=== PATIENT | female | born 1935 | race Caucasian/White ===

== ENCOUNTER 2018-07-14 11:11 | Inpatient (IN) | payer MEDICARE, OTHER ==
[~2018-07-14] VITALS: Ht 162.6 cm; Wt 87.1 kg
[2018-07-14] MEDS ORDERED: IV NORMAL SALINE 1,000ML 1,000 ML IV ONE (11:30)
[2018-07-14 11:52] LABS: BASO % 1 % (0-3); EOS % 0 % (0-3); HEMATOCRIT 43.6 % (36.0-47.0); HEMOGLOBIN 14.2 g/dL (12.0-15.5); LYMPH % 23 % (24-48); MEAN CORPUSCULAR HEMOGLOBIN 28 pg (25-35); MEAN CORPUSCULAR HGB CONC 33 g/dL (31-37); MEAN CORPUSCULAR VOLUME 86 fL (79-100); MONO # 0.2 x10^3/uL (0.0-1.1); MONO % 4 % (0-9); NEUT # 3.3 x10^3uL (1.8-7.7); NEUT % 72 % (31-73); PLATELET COUNT 166 x10^3/uL (140-400); RED BLOOD COUNT 5.06 x10^6/uL (3.50-5.40); RED CELL DISTRIBUTION WIDTH 13.8 % (11.5-14.5); WHITE BLOOD COUNT 4.6 x10^3/uL (4.0-11.0)
--- NOTE | 2018-07-14 11:58 | PHYS DOC ---
Adult General Chief Complaint Chief Complaint: DIZZY/LIGHT HEADED HPI HPI 83-year-old female presents with dizziness. Patient states that she had sudden onset dizziness when she sat up last night. He describes the dizziness as a room spinning sensation. She had a cold onto the newsome to walk in the hallway. She was able to sleep overnight. Today when the patient got up she had the same and station. It comes on she moves her head too quickly. Patient did have one episode of nausea, vomiting, and diarrhea. She has had no further episodes. She has never had this before. She is generally very active, swimming every day. She has no history of vertigo, cardiac problems, or stroke. The patient denies fever or chills. She has had no other symptoms of illness prior to this. Review of Systems Review of Systems Constitutional: Denies fever or chills [] Eyes: Denies change in visual acuity, redness, or eye pain [] HENT: Denies nasal congestion or sore throat [] Respiratory: Denies cough or shortness of breath [] Cardiovascular: No additional information not addressed in HPI [] GI: Denies abdominal pain, nausea, vomiting, bloody stools or diarrhea [] : Denies dysuria or hematuria [] Musculoskeletal: Denies back pain or joint pain [] Integument: Denies rash or skin lesions [] Neurologic: Denies headache, focal weakness or sensory changes. Dizziness [] Endocrine: Denies polyuria or polydipsia [] All other systems were reviewed and found to be within normal limits, except as documented in this note. Current Medications Current Medications Current Medications Medications (Trade) Dose Ordered Sig/[facility] Start Time Stop Time Status Last Admin Dose Admin Ondansetron HCl (Zofran) 4 mg 1X ONCE 07/14/18 11:30 07/14/18 11:31 UNV Sodium Chloride 1,000 ml @ 1,000 mls/hr 1X ONCE 07/14/18 11:30 07/14/18 12:29 UNV Physical Exam Physical Exam Constitutional: Well developed, obese, well nourished, no acute distress, non- toxic appearance. [] HENT: Normocephalic, atraumatic, bilateral external ears normal, oropharynx moist, no oral exudates, nose normal. Tympanic membranes normal[] Eyes: PERRLA, EOMI, conjunctiva normal, no discharge. [] Neck: Normal range of motion, no tenderness, supple, no stridor. [] Cardiovascular:Heart rate regular rhythm, no murmur [] Lungs & Thorax: Bilateral breath sounds clear to auscultation [] Abdomen: Bowel sounds normal, soft, no tenderness, no masses, no pulsatile masses. [] Skin: Warm, dry, no erythema, no rash. [] Back: No tenderness, no CVA tenderness. [] Extremities: No tenderness, no cyanosis, no clubbing, ROM intact, no edema. [] Neurologic: Alert and oriented X 3, normal motor function, normal sensory function, no focal deficits noted. [] Psychologic: Affect normal, judgement normal, mood normal. [] EKG EKG Sinus rhythm, rate 53, normal axis, no ST elevations or depressions.[] Radiology/Procedures Radiology/Procedures [] Impressions: PQRS Compliance statement: One or more of the following individualized dose reduction techniques were utilized for this examination: 1. Automated exposure control. 2. Adjustment of the mA and/or kV according to patient size. 3. Use of iterative reconstruction technique. Indication:DIZZINESS TIMES 2 DAYS TECHNIQUE: CT head without IV contrast COMPARISON:11/12/2011 FINDINGS: No pathologic extra-axial or intra-axial fluid collection. Mild diffuse cerebral atrophy with ex vacuo dilation of the ventricles. Confluent low-attenuation is seen in the periventricular and deep white matter. No acute intracranial bleed. No focal loss of hurley-white differentiation. Orbits are within normal limits. No suspicious calvarial lesion. Visualized paranasal sinuses and mastoid air cells are clear. IMPRESSION: 1. No acute intracranial bleed. 2. Advanced white matter changes likely secondary to chronic microvascular ischemic disease. If concern for acute ischemic stroke is high, please consider MRI brain. Electronically signed by: Ryan Flor DO (07/14/2018 11:53 AM) [facility] DICTATED AND SIGNED BY: RYAN FLOR DO DATE: 07/14/18 2421 CC: KRYSTAL DAUGHERTY DO; HALLEY PATRICK DO Course & Med Decision Making Course & Med Decision Making Pertinent Labs and Imaging studies reviewed. (See chart for details) Patient's EKG is unremarkable. Her labs are unremarkable. Her urine is pending. Her head CT is unremarkable. We have given normal saline. We'll attempt to do orthostatic pressures, she gets very dizzy when she stands up. The have given her meclizine and we'll retest her to see if this helps. It did not I will admit her to the hospital. The patient's blood pressure is also quite elevated at 195/95. I will give her clonidine in the ED. The clonidine helped with the patient's blood pressure. The meclizine was not helping with her dizziness. I talked to the hospitalist, Dr. Parmar and he has accepted the patient for admission. The patient is in agreement with admission. [] Dragon Disclaimer Dragon Disclaimer This electronic medical record was generated, in whole or in part, using a voice recognition dictation system. Departure Departure: Impression: Primary Impression: Dizziness Disposition: ADMITTED INPATIENT Admitting Physician: Vin Parmar Condition: STABLE Referrals: HALLEY PATRICK DO (PCP) KRYSTAL DAUGHERTY DO Jul 14, 2018 11:58
[2018-07-14 12:07] LABS: ALBUMIN 3.5 g/dL (3.4-5.0); ALBUMIN/GLOBULIN RATIO 1.2 (1.0-1.7); CALCIUM 9.1 mg/dL (8.5-10.1); CREATININE 0.8 mg/dL (0.6-1.0); GFR 68.8; POTASSIUM 4.3 mmol/L (3.5-5.1); TOTAL BILIRUBIN 0.5 mg/dL (0.2-1.0); TOTAL PROTEIN 6.5 g/dL (6.4-8.2)
[2018-07-14] MEDS ORDERED: ONDANSETRON PF 4 MG/2 ML VIAL. IV ONE (12:45)
[2018-07-14] MEDS ORDERED: MECLIZINE 12.5 MG TABLET. PO PRN (13:30)
[2018-07-14] MEDS ORDERED: cloNIDine HCL 0.1 MG TABLET PO ONE (14:15)
[2018-07-14 15:34] VITALS: BP 119/73
--- NOTE | 2018-07-14 17:48 | HP ---
ADMIT DATE: 07/14/2018 HISTORY OF PRESENT ILLNESS: The patient is an 83-year-old female patient who came to the Emergency Room complaining of dizziness that started 2 nights ago. First night, she woke up from her bed to go to the bathroom and felt that the things spinning around. She basically used the furniture on newsome, and was able to go back to her bed and sleep. When she got up, she had the same sensation. Yesterday she did well; however, early this morning around 3:30, she went to the bathroom and had the same feeling and she woke up again this morning and she basically has the same another episode during which she has vomited and has one episode of diarrhea, but denied any chest pain and she has never had this before and she is generally very active, swimming every day. She was investigated in the Emergency Room. Her lab works were unremarkable and a CT scan of the head basically showed no pathologic, extraaxial, or intraaxial fluid collection. Mild diffuse cerebral atrophy with ex vacuo dilatation of the ventricles, confluent low attenuation is seen in the periventricular and deep white matter. No acute intracranial bleed, no focal loss of hurley-white differentiation. Orbits are within normal limits. No suspicious calvarial lesion visualized. Paranasal sinuses and mastoid air cells are clear. The patient was admitted with acute labyrinthitis versus benign positional vertigo. PAST MEDICAL HISTORY: Significant for hypertension, hyperlipidemia. PAST SURGICAL HISTORY: Significant for total abdominal hysterectomy, bilateral salpingo-oophorectomy, but has bilateral cataract extraction, tonsillectomy, appendectomy. She had had also colonoscopy and broken right foot treated conservatively. ALLERGIES: She has no known drug allergies. MEDICATIONS: She is on Altace 10 mg once a day. FAMILY HISTORY: Her father at the age of 67 because of myocardial infarction. Mother at the age of 75 because of myocardial infarction. She has no brothers or sisters. SOCIAL HISTORY: She is , has no children. She does not smoke. Drinks alcohol occasionally and it has to be a [place] beer. 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 REVIEW OF SYSTEMS: The patient denied any blurring of vision, has had bilateral cataract extraction, but denied any glaucoma or macular degeneration. Denied any earache, tinnitus or sensorineural deafness. Denied any nosebleeds, stuffy nose or postnasal drip. Denied any sore throat, sore tongue, toothache, hoarseness of voice or difficulty swallowing. Did have 1 episode of nausea and vomiting this morning; has had one episode of diarrhea, but denied any hematemesis, melena or hematochezia. Denied any dysuria, frequency or hematuria. Denied any chest pain, shortness of breath, cough, phlegm or hemoptysis. Did complain obviously of dizziness and spinning things around. Denied any palpitation. Denied any chills, rigors or fever. PHYSICAL EXAMINATION: GENERAL: On arrival to the Emergency Room, she looked well and was clearly in no apparent respiratory distress. No pallor, jaundice, cyanosis, or thyromegaly. No jugular venous distension. No limb edema. VITAL SIGNS: Her heart rate was 54, blood pressure 140/75, temperature was 98.3, respiratory rate was 16, and oxygen saturation was 98%. HEAD, EYES, EARS, NOSE, AND THROAT: Showed normocephalic, atraumatic. NECK: Supple. HEART: Showed normal first and second heart sounds. No gallop, rub or murmur. CHEST: Clear to auscultation. No crepitation or rhonchi. ABDOMEN: Distended, soft, nontender. NEUROLOGIC: She was awake, alert, responding appropriately. She is okay when she is lying flat in bed, but the moment she starts moving she starts having this feeling that things are spinning around; however, I could not elicit any nystagmus. All her cranial nerves are intact. She moves extremities without difficulty. She ambulates without assistance or assistive devices. LABORATORY DATA: Showed a serum sodium 143, potassium 4.3, chloride 107, bicarbonate 27, anion gap of 9, BUN 16, creatinine 0.8, estimated GFR was 69 mL per minute, glucose 170, calcium was 9.1. Total bilirubin, AST, ALT, alkaline phosphatase were normal. Total protein was 6.5, albumin was 3.5. Her white cell count was 4600, hemoglobin 14.2, hematocrit 44, MCV 86, and platelet count of 166,000. Her CT scan showed that no pathologic extraaxial or intraaxial fluid collection. She has mild cerebral atrophy with ex vacuo dilatation of the ventricles, confluent low attenuation seen in the periventricular and deep white matter, no acute intracranial bleed. No focal loss of hurley-white differentiation. Orbits are within normal limits. No suspicious calvarial lesion visualized. Paranasal sinuses and mastoid air cells are clear. PLAN: My plan is to arrange for carotid Doppler ultrasound. Consult Dr. Valladares. Check her lipid profile tomorrow. DEVANG NEELY MD DR: AMISHA/vianney JOB#: [id number] / [id number]
[2018-07-14] MEDS ORDERED: METOCLOPRAMIDE HCL 10 MG/2 ML VIAL. IV PRN (18:15)
[2018-07-14] MEDS ORDERED: RAMI10CA34 PO (18:15)
[2018-07-14] MEDS ORDERED: ONDANSETRON PF 4 MG/2 ML VIAL. IV PRN (18:15)
[2018-07-14] MEDS ORDERED: diphenhydrAMINE HCL 25 MG CAPSULE PO PRN (18:15)
[2018-07-14 18:35] VITALS: BP 108/66
[2018-07-14 20:30] VITALS: BP 97/62
[2018-07-14 23:19] VITALS: BP 111/66
[2018-07-15 06:04] VITALS: BP 144/82
[2018-07-15 08:12] LABS: ALBUMIN 3.5 g/dL (3.4-5.0); ALBUMIN/GLOBULIN RATIO 1.2 (1.0-1.7); CREATININE 0.8 mg/dL (0.6-1.0); GFR 68.8; MAGNESIUM 2.2 mg/dL (1.8-2.4); POTASSIUM 4.1 mmol/L (3.5-5.1); TOTAL BILIRUBIN 0.5 mg/dL (0.2-1.0); TOTAL PROTEIN 6.4 g/dL (6.4-8.2)
[2018-07-15 08:18] LABS: BASO # 0.1 x10^3/uL (0.0-0.2); BASO % 1 % (0-3); EOS # 0.2 x10^3/uL (0.0-0.7); EOS % 4 % (0-3); HEMATOCRIT 45.7 % (36.0-47.0); HEMOGLOBIN 14.8 g/dL (12.0-15.5); LYMPH # 2.3 x10^3/uL (1.0-4.8); LYMPH % 41 % (24-48); MEAN CORPUSCULAR HEMOGLOBIN 28 pg (25-35); MEAN CORPUSCULAR HGB CONC 32 g/dL (31-37); MEAN CORPUSCULAR VOLUME 87 fL (79-100); MONO # 0.4 x10^3/uL (0.0-1.1); MONO % 8 % (0-9); NEUT # 2.6 x10^3uL (1.8-7.7); NEUT % 47 % (31-73); PLATELET COUNT 185 x10^3/uL (140-400); RED BLOOD COUNT 5.29 x10^6/uL (3.50-5.40); RED CELL DISTRIBUTION WIDTH 14.3 % (11.5-14.5); WHITE BLOOD COUNT 5.7 x10^3/uL (4.0-11.0)
[2018-07-15 08:36] LABS: BACTERIA,URINE FEW /HPF (0-FEW); BILIRUBIN,URINE NEG (NEG); CLARITY,URINE HAZY; COLOR,URINE AMBER; GLUCOSE,URINE NEG (NEG); NITRITE,URINE NEG (NEG); RBC,URINE RARE /HPF (0-2); UROBILINOGEN,URINE 0.2 mg/dL (0.2 mg/dL)
[2018-07-15 08:37] LABS: HYALINE CASTS, URINE OCC /HPF; SQUAMOUS EPITHELIAL CELL,UR MOD /LPF
--- NOTE | 2018-07-15 09:05 | RAD ---
DOPPLER CAROTID BILAT Clinical Indication: Vertigo.. Procedure: Pulsed wave and color-flow duplex imaging was utilized to evaluate the extracranial carotid arteries. Comparison: None. Findings: RIGHT SIDE: Mild atherosclerotic plaque on hurley-scale images. Distal CCA peak systolic velocity 41 cm/sec. ICA peak systolic velocity 58 cm/sec. The right ICA/CCA ratio is 1.4. Flow in the vertebral artery and right ECA is directed antegrade. LEFT SIDE: Mild atherosclerotic plaque on hurley-scale images. Distal CCA peak systolic velocity 41 cm/sec. ICA peak systolic velocity 55 cm/sec. The left ICA/CCA ratio is 1.3. Flow within the left vertebral artery and left ECA is directed antegrade. Carotid legend: CCA = common carotid artery ICA = internal carotid artery ECA = external carotid artery IMPRESSION: No hemodynamically significant stenosis. Electronically signed by: Ryan Flor DO (07/15/2018 9:02 AM) [facility]
[2018-07-15 10:20] VITALS: BP 138/84
[2018-07-15] MEDS ORDERED: ASPIRIN 81 MG TAB.CHEW PO SCH (11:00)
[2018-07-15] MEDS ORDERED: MECL12.52 PO (14:29)
--- NOTE | 2018-07-15 18:53 | CONS ---
DATE OF CONSULTATION: NEUROLOGY CONSULTATION REASON FOR CONSULTATION: Severe dizziness. HISTORY OF PRESENT ILLNESS: This is an 83-year-old right-handed female who was admitted through Emergency Room yesterday after she presented with 2-day history of recurrent dizzy spell described as "spinning," aggravated by changing her body positions from sitting to standing. The patient also complains of nausea and she vomited one time. She denies headaches, visual disturbances. No chest pain, shortness of breath, palpitation, dysarthria, dysphagia, weakness, or paresthesia. Initial nonenhanced head CT scan revealed evidence of generalized atrophy with ventricular hypertrophy and chronic small vessel ischemic changes. She denies any recent head injuries or fall. PAST MEDICAL HISTORY: Significant for hypertension and hyperlipidemia. PAST SURGICAL HISTORY: Significant for hysterectomy, appendectomy, tonsillectomy, and cataract extraction. SOCIAL HISTORY: The patient is . She has no children. She denies smoking, alcohol drinking, or illicit drug use. FAMILY HISTORY: Father at the age of 67 from coronary artery disease and mother at the age of 75 because of coronary artery disease and heart attack. CURRENT MEDICATIONS: Altace 10 mg daily. ALLERGIES: No known drug allergies. REVIEW OF SYSTEMS: A 10-point review of system was performed and consistent with dizziness as mentioned above in history of present illness. PHYSICAL EXAMINATION: GENERAL: A well-developed, well-nourished female, not in acute distress. VITAL SIGNS: She weighs 192 pounds and height is 64 inches. Blood pressure 119/73, respiratory rate 20, pulse is 59, temperature 97.1, oxygen saturation 94% on room air. HEENT: Normocephalic, atraumatic, otherwise unremarkable. NECK: Supple. Negative for carotid bruit, lymphadenopathy, or thyromegaly. LUNGS: Clear to A and P. CARDIOVASCULAR: Regular rhythm, normal S1, S2. There is no S3, S4, or murmur. ABDOMEN: Soft. Bowel sounds positive. EXTREMITIES: Negative for cyanosis, clubbing, or pitting edema. NEUROLOGICAL: Mental status: The patient is alert and oriented x 2. Speech is fluent. There is no language dysfunction. Memory patient recalled 2/3 immediately and 1/3 after 1 and 3 minutes. Judgment and abstract thinking are normal. The patient denies hallucination or delusion. CRANIAL NERVES: Visual angulo are full. The pupils are reactive to light and accommodation. The extraocular movements are intact. There is no nystagmus. There is no facial motor or sensory deficit. Hearing is intact bilaterally. The palate is elevated symmetrically. Sternocleidomastoid muscles are powerful bilaterally. The patient shrugs her shoulders symmetrically and protrudes her tongue in the midline without fasciculation or atrophy. Motor: No focal muscle bulk is seen. The tone is normal. The strength is 5/5 throughout. Sensory examination reveals normal pinprick, light touch, vibratory and position senses. Deep tendon reflexes are symmetric and hypoactive with absent Achilles responses. Gait: The stance is steady. The patient has normal [id number] and [id number]-[id number] and rapid alternative movements and rapid repetitive movements. The patient uses a walker for ambulation as well. DIAGNOSTIC DATA: Initial nonenhanced head CT scan as described above in the history of present illness. Carotid Doppler study revealed no evidence of significant carotid stenosis. LABORATORY DATA: CBC revealed white blood cells of 5700, hemoglobin 14.8, hematocrit 45.7, platelet count 185,000. Chemistry revealed sodium of 147, potassium 4.1, chloride 110, CO2 of 26, BUN 17, creatinine 0.8, glucose is 104, calcium 9. Liver enzymes are normal. Troponin level is normal. Urinalysis revealed small urinary leukocyte esterase with white blood cells 5-10 and few bacteria. IMPRESSION: 1. Two-day history of acute vertigo and had one episode of nausea and vomiting. The symptoms are usually aggravated by changing her body positions from sitting to standing. However, the symptoms have been improved in the last 24 hours. These symptoms may represent paroxysmal benign positional vertigo without any significant focal neurological deficits. 2. Hypertension. 3. Possible urinary tract infections. RECOMMENDATIONS: 1. I have discussed with the patient to do vestibular exercise at bedside and she has been trying this in my presence and she did very well. 2. I will start the patient on baby aspirin as she had chronic small vessel ischemic change on head CT scan. 3. We will monitor hypertension, otherwise. 4. We will continue with current management initiated by Dr. Parmar. M Terra GARCES MD DR: ZEV/vianney JOB#: [id number] / [id number]
--- NOTE | 2018-07-15 20:03 | DS ---
DATE OF DISCHARGE: 07/14/2018 HOSPITAL COURSE: The patient was admitted yesterday with recurrent episodes of what seems to be vertigo with the things spinning around. Apparently, her CT scan was normal, had a carotid Doppler ultrasound, which showed no hemodynamically significant stenosis. She did actually very well. She has been able to walk around today without any difficulty and she felt that improved such that she would like to go home. PHYSICAL EXAMINATION: GENERAL: When I saw her this afternoon, she looked well and was clearly in no apparent respiratory distress. No pallor, jaundice, cyanosis, or thyromegaly. No jugular venous distension. No lower limb edema. VITAL SIGNS: Her heart rate was 71, blood pressure 138/84, temperature was 97.3, respiratory rate was 20, and oxygen saturation was 96%. The rest of the clinical examination is stable, has not really changed. LABORATORY DATA: Her lab work showed a white cell count 5700, hemoglobin 15, hematocrit 45, MCV 87, and platelet count of 185,000. Her chemistry showed a serum sodium 147, potassium 4.1, chloride 110, bicarbonate 26, anion gap of 11, BUN 17, creatinine 0.8, estimated GFR was 68 mL per minute. Her glucose 104, calcium was 9, magnesium was 2.2. Total bilirubin, AST, ALT, alkaline phosphatase were normal. Total protein was 6.4, albumin 3.5. DISCHARGE MEDICATIONS: She was discharged home to continue on meclizine 12.5 mg 3 times a day as needed, Altace 10 mg once a day and aspirin 81 mg once a day. FINAL DISCHARGE DIAGNOSES: 1. Probably benign paroxysmal positional vertigo. 2. Hypertension. 3. Hyperlipidemia. DEVANG NEELY MD DR: AMISHA/vianney JOB#: [id number] / [id number]
--- NOTE | 2018-07-15 21:58 | EKG ---
[address] [address] Test Date: 2018-07-14 Test Time: 11:29:11 Pat Name: SHALOM JARA Department: Room: 105 A Gender: F [employer] J[employer] Supervisor: : [id number] Requested By: KRYSTAL DAUGHERTY Order Number: [id number] Reading MD: Caleb Greco MD Measurements Intervals [place] Rate: 53 P: 43 VA: 182 QRS: -6 QRSD: 86 T: 39 QT: 476 QTc: 449 Interpretive Statements SINUS RHYTHM Electronically Signed On 07-18-2018 10:01:20 CDT by Caleb Greco MD
== END 2018-07-15 15:16 | disposition home or self-care (01) | DRG 149 ==
LOC: ER 11:11 → 1 SOUTH 15:09
PROVIDERS: ADMIT Internal Medicine; ATTEND Internal Medicine
DX: H81.10 Benign paroxysmal vertigo, unspecified ear (principal); E78.5 Hyperlipidemia, unspecified; I11.9 Hypertensive heart disease without heart failure; Z82.49 Family history of ischemic heart disease and other diseases of the circulatory system; Z90.710 Acquired absence of both cervix and uterus; Z98.41 Cataract extraction status, right eye; Z98.42 Cataract extraction status, left eye; Z79.899 Other long term (current) drug therapy; Z90.49 Acquired absence of other specified parts of digestive tract; Z90.722 Acquired absence of ovaries, bilateral
CPT/HCPCS: 36415; 70450; 80053; 80061; 81001; 83735; 84484; 85025; 87086; 93005; 93880; 96360; 96361; J8597; 99285-25; J7030